=== PATIENT | female | born 1965 | race Caucasian/White ===

== ENCOUNTER 2017-06-12 10:07 | Day surgery (SDC) | payer SELFPAY ==
[~2017-06-12] VITALS: Ht 165.1 cm; Wt 76.0 kg
[~2017-06-12 10:07] MED LIST: HYDROCODON-ACE1 EA16 PO; IBUPROFEN400 M1 PO; IBUPROFEN600 M1 PO; NORCO 5/3251 TAB PO
== END 2017-06-12 14:00 ==
LOC: SHSB 10:07 → SRG 10:07 → ORE 11:55 → SHSB 12:40 → SRG 14:00
PROC: 0RH Upper Joints, Insertion (ICD-10-PCS; principal; 2017-06-12)
DX: S63.014A Dislocation of distal radioulnar joint of right wrist, initial encounter (principal); X58.XXXA Exposure to other specified factors, initial encounter
CPT/HCPCS: J0690; J2250; J3010; J7030